=== PATIENT | female | born 1990 | race Caucasian/White ===

== ENCOUNTER 2022-02-01 15:40 | Emergency (ER) | payer MEDICAID ==
[~2022-02-01] VITALS: Ht 170.2 cm; Wt 105.0 kg
[~2022-02-01 15:40] MED LIST: CLIN300C17 PO
[2022-02-01] MEDS ORDERED: morphine 4 MG/ML inj SYRINge IV ONE ×4 (16:10→21:25)
[2022-02-01] MEDS ORDERED: ondansetron/PF 4mg/2ml inj IV ONE (16:10)
--- NOTE | 2022-02-01 16:19 | NUR ---
Patient declines ice packs.
[2022-02-01] MEDS ORDERED: LIDOcaine 1% W/epiNEPHrine 1:100,000 20ml vial SQ ONE ×4 (16:20→20:45)
[2022-02-01] MEDS ORDERED: ceFAZolin/D5W- 1GM premix 50 ML IV ONE (18:30)
--- NOTE | 2022-02-01 18:35 | NUR ---
Assumed care from Rn. Pat Alejandra at bedside.
[2022-02-01] MEDS ORDERED: oxyCODONE/APAP 10/325mg tablet PO ONE (19:35)
[2022-02-01] MEDS ORDERED: ketorolac trometh. 30mg/ml inj. IV ONE (21:25)
[2022-02-01] MEDS ORDERED: rabies immune globulin/PF 150 unit/ml inj IMVAC STA (21:47)
[2022-02-01] MEDS ORDERED: rabies vaccine (PCEC)/PF 2.5 unit kit IMVAC ONE (21:50)
[2022-02-01] MEDS ORDERED: OXYC-150 PO (22:30)
[2022-02-01] MEDS ORDERED: DOXY100T56 PO (22:30)
[2022-02-01 22:36] VITALS: BP 115/56
--- NOTE | 2022-02-01 23:16 | NUR ---
dr rodrigues to give a verbal for 5mg norco after pt stated the need for pain management until pharmacy opens
[2022-02-01] MEDS ORDERED: HYDROcodone/acetaminophen 5mg/325mg tablet PO ONE (23:20)
--- NOTE | 2022-02-01 23:47 | NUR ---
PT ARM WRAPPED, AND PUT IN SLING WITH [employer] [facility].
== END 2022-02-01 23:15 | disposition home or self-care (01) ==
LOC: ER 15:41
DX: S11.91XA Laceration without foreign body of unspecified part of neck, initial encounter (principal); S51.811A Laceration without foreign body of right forearm, initial encounter; S51.821A Laceration with foreign body of right forearm, initial encounter; S01.81XA Laceration without foreign body of other part of head, initial encounter; S50.11XA Contusion of right forearm, initial encounter; W54.0XXA Bitten by dog, initial encounter; Y93.89 Activity, other specified; Y92.89 Other specified places as the place of occurrence of the external cause; Y99.8 Other external cause status; Z20.3 Contact with and (suspected) exposure to rabies
CPT/HCPCS: 12007; 12013; 73090; 73110; 90376; 90471; 90675; 96365; 96372; 96375; 96376; 99285; J0690; J1885; J2270; J2405; J3490; 99284

== ENCOUNTER 2022-02-04 11:47 | Emergency (ER) | payer MEDICAID ==
[~2022-02-04] VITALS: Ht 170.2 cm; Wt 84.1 kg
[~2022-02-04 11:47] MED LIST changes: +DOXY100T56 PO; +OXYC-150 PO
[2022-02-04 12:03] VITALS: BP 116/86
[2022-02-04] MEDS ORDERED: rabies vaccine (PCEC)/PF 2.5 unit kit IMVAC ONE (13:20)
[2022-02-04] MEDS ORDERED: docusate sod 100mg capsule PO ONE (13:20)
== END 2022-02-04 13:57 | disposition home or self-care (01) ==
LOC: ER 11:47
DX: Z48.00 Encounter for change or removal of nonsurgical wound dressing (principal); S51.811D Laceration without foreign body of right forearm, subsequent encounter; S01.81XD Laceration without foreign body of other part of head, subsequent encounter; F17.200 Nicotine dependence, unspecified, uncomplicated; Z88.0 Allergy status to penicillin; Z88.1 Allergy status to other antibiotic agents; Z88.2 Allergy status to sulfonamides; Z79.2 Long term (current) use of antibiotics; Z79.899 Other long term (current) drug therapy; W54.0XXD Bitten by dog, subsequent encounter
CPT/HCPCS: 90471; 90675; 99281; 99283

== ENCOUNTER 2022-02-08 10:38 | Emergency (ER) | payer MEDICAID ==
[~2022-02-08] VITALS: Ht 170.2 cm; Wt 100.0 kg
[2022-02-08 10:45] VITALS: BP 148/84
[2022-02-08] MEDS ORDERED: rabies vaccine (PCEC)/PF 2.5 unit kit IMVAC ONE (11:15)
== END 2022-02-08 12:57 | disposition home or self-care (01) ==
LOC: ER 10:38
DX: S51.811D Laceration without foreign body of right forearm, subsequent encounter (principal); F12.90 Cannabis use, unspecified, uncomplicated; Z48.02 Encounter for removal of sutures; Z23 Encounter for immunization; Z88.0 Allergy status to penicillin; Z88.2 Allergy status to sulfonamides; Z88.1 Allergy status to other antibiotic agents; Z79.2 Long term (current) use of antibiotics; X58.XXXD Exposure to other specified factors, subsequent encounter
CPT/HCPCS: 90471; 90675; 99281

== ENCOUNTER 2022-02-11 12:26 | Emergency (ER) | payer MEDICAID ==
[~2022-02-11] VITALS: Ht 170.2 cm; Wt 100.0 kg
[2022-02-11 13:23] VITALS: BP 126/72
== END 2022-02-11 14:47 | disposition home or self-care (01) ==
LOC: ER 12:27
DX: S61.411D Laceration without foreign body of right hand, subsequent encounter (principal); W54.0XXD Bitten by dog, subsequent encounter; F12.10 Cannabis abuse, uncomplicated; Z88.0 Allergy status to penicillin; Z88.2 Allergy status to sulfonamides; Z88.1 Allergy status to other antibiotic agents; Z79.899 Other long term (current) drug therapy
CPT/HCPCS: 99281

== ENCOUNTER 2022-02-14 13:49 | Emergency (ER) | payer MEDICAID ==
[~2022-02-14] VITALS: Ht 170.2 cm; Wt 94.5 kg
[~2022-02-14 13:49] MED LIST changes: -DOXY100T56 PO
[2022-02-14 14:11] VITALS: BP 128/85
== END 2022-02-14 15:45 | disposition home or self-care (01) ==
LOC: ER 13:50
DX: S51.811D Laceration without foreign body of right forearm, subsequent encounter (principal); F12.90 Cannabis use, unspecified, uncomplicated; Z48.02 Encounter for removal of sutures; Z88.0 Allergy status to penicillin; Z88.2 Allergy status to sulfonamides; Z88.1 Allergy status to other antibiotic agents; Z79.2 Long term (current) use of antibiotics; X58.XXXD Exposure to other specified factors, subsequent encounter
CPT/HCPCS: 99281

== ENCOUNTER 2022-02-17 14:38 | Emergency (ER) | payer MEDICAID ==
[~2022-02-17] VITALS: Ht 170.2 cm; Wt 100.0 kg
[2022-02-17 14:54] VITALS: BP 115/70
--- NOTE | 2022-02-17 16:05 | NUR ---
not in lobby [id number]#[id number]
== END 2022-02-17 17:07 | disposition left against medical advice (07) ==
LOC: ER 14:39
DX: Z76.0 Encounter for issue of repeat prescription (principal); Z53.21 Procedure and treatment not carried out due to patient leaving prior to being seen by health care provider

== ENCOUNTER 2022-02-18 10:17 | Emergency (ER) | payer MEDICAID ==
[~2022-02-18] VITALS: Ht 170.2 cm; Wt 100.0 kg
[2022-02-18 10:44] VITALS: BP 126/72
[2022-02-18] MEDS ORDERED: rabies vaccine (PCEC)/PF 2.5 unit kit IMVAC ONE (11:55)
== END 2022-02-18 12:12 | disposition home or self-care (01) ==
LOC: ER 10:18
DX: S61.451D Open bite of right hand, subsequent encounter (principal); W54.0XXD Bitten by dog, subsequent encounter; Z20.3 Contact with and (suspected) exposure to rabies
CPT/HCPCS: 90471; 90675; 99281

== ENCOUNTER 2022-04-15 20:03 | Emergency (ER) | payer MEDICAID ==
[~2022-04-15] VITALS: Ht 170.2 cm; Wt 100.0 kg
[2022-04-15 20:08] VITALS: BP 144/93
[2022-04-15] MEDS ORDERED: CLIN300C70 PO (20:49)
[2022-04-15] MEDS ORDERED: IBUP-1984 PO (20:49)
[2022-04-15] MEDS ORDERED: HYDROcodone/acetaminophen 5mg/325mg tablet PO ONE (20:50)
[2022-04-15] MEDS ORDERED: ketorolac tromethamine 15mg/ml inj. IM ONE (20:50)
[2022-04-15] MEDS ORDERED: clindamycin 150mg capsule PO ONE ×2 (20:50)
[2022-04-15] MEDS ORDERED: ondansetron 4mg rapidly disintigrating tab PO ONE (20:50)
--- NOTE | 2022-04-15 21:14 | NUR ---
im given po meds x3 given
== END 2022-04-15 21:15 | disposition home or self-care (01) ==
LOC: ER 20:04
DX: K04.7 Periapical abscess without sinus (principal); F12.90 Cannabis use, unspecified, uncomplicated; Z88.0 Allergy status to penicillin; Z88.1 Allergy status to other antibiotic agents; Z88.2 Allergy status to sulfonamides
CPT/HCPCS: 96372; 99284; J1885

== ENCOUNTER 2022-06-25 21:22 | Emergency (ER) | payer MEDICAID ==
[~2022-06-25] VITALS: Ht 170.2 cm; Wt 104.0 kg
[2022-06-25 21:36] VITALS: BP 132/58
== END 2022-06-26 02:09 | disposition left against medical advice (07) ==
LOC: ER 21:22
DX: R10.9 Unspecified abdominal pain (principal); Z53.21 Procedure and treatment not carried out due to patient leaving prior to being seen by health care provider

== ENCOUNTER 2022-07-10 10:27 | Emergency (ER) | payer MEDICAID ==
[~2022-07-10] VITALS: Ht 170.2 cm; Wt 100.0 kg
[2022-07-10] MEDS ORDERED: dexamethasone 4mg/ml inj IV ONE (10:45)
[2022-07-10] MEDS ORDERED: famotidine/PF 10 mg/ml inj IV ONE (10:45)
[2022-07-10] MEDS ORDERED: diphenhydrAMINE 50 mg/ml inj IV ONE (10:45)
[2022-07-10] MEDS ORDERED: DIPH25CA83 PO (13:22)
[2022-07-10] MEDS ORDERED: PRED20TA PO (13:22)
[2022-07-10] MEDS ORDERED: FAMO40TA73 PO (13:22)
[2022-07-10] MEDS ORDERED: ondansetron/PF 4mg/2ml inj IV ONE (13:30)
[2022-07-10 13:34] VITALS: BP 127/71
== END 2022-07-10 13:36 | disposition home or self-care (01) ==
LOC: ER 10:27
DX: T78.40XA Allergy, unspecified, initial encounter (principal); R00.0 Tachycardia, unspecified; L50.9 Urticaria, unspecified; F17.200 Nicotine dependence, unspecified, uncomplicated; F19.90 Other psychoactive substance use, unspecified, uncomplicated; Z72.89 Other problems related to lifestyle; Z88.0 Allergy status to penicillin; Z88.2 Allergy status to sulfonamides; Z88.1 Allergy status to other antibiotic agents; Z79.2 Long term (current) use of antibiotics; Z79.899 Other long term (current) drug therapy; Y92.89 Other specified places as the place of occurrence of the external cause
CPT/HCPCS: 96374; 96375; 99285; J1100; J1200; J2405; J3490

== ENCOUNTER 2022-07-12 14:03 | Emergency (ER) | payer MEDICAID ==
[~2022-07-12] VITALS: Ht 170.2 cm; Wt 100.0 kg
[~2022-07-12 14:03] MED LIST changes: +DIPH25CA83 PO; +FAMO40TA73 PO; +PRED20TA PO
[2022-07-12 14:06] VITALS: BP 128/108
[2022-07-12] MEDS ORDERED: ondansetron 4mg rapidly disintigrating tab PO ONE (15:30)
--- NOTE | 2022-07-13 10:58 | NUR ---
Received order for consult. Called patient and left message.
--- NOTE | 2022-07-13 11:05 | NUR ---
Patient called me back about referral to [facility] clinic. I referred patient to Dr. Baron. Patient will call me if she has any questions.
== END 2022-07-12 15:53 | disposition home or self-care (01) ==
LOC: ER 14:04
DX: T78.40XA Allergy, unspecified, initial encounter (principal); Z88.0 Allergy status to penicillin; Z88.2 Allergy status to sulfonamides; Z88.1 Allergy status to other antibiotic agents; Z79.899 Other long term (current) drug therapy
CPT/HCPCS: 99283

== ENCOUNTER 2023-04-27 08:24 | Emergency (ER) | payer MEDICAID ==
[~2023-04-27] VITALS: Ht 165.1 cm; Wt 70.5 kg
[~2023-04-27 08:24] MED LIST changes: +CLIN150C2 PO; -PRED20TA PO
[2023-04-27 08:51] LABS: BASOPHILS # (AUTO) 0.1 X10'3 (0-0.2); BASOPHILS % (AUTO) 1.3 % (0-1); EOSINOPHILS # (AUTO) 0.5 X10'3 (0-0.9); HEMATOCRIT 36.7 % (35.0-45.0); HEMOGLOBIN 12.3 g/dl (12.0-16.0); LYMPHOCYTES % (AUTO) 28.7 % (21-51); MEAN CORPUSCULAR HEMOGLOBIN 31.4 PG (27.0-31.0); MEAN CORPUSCULAR HGB CONC 33.4 g/dL (33.0-36.5); MEAN CORPUSCULAR VOLUME 93.8 FL (78-98); MEAN PLATELET VOLUME 8.4 FL (7.4-10.4); MONOCYTES # (AUTO) 0.5 X10'3 (0-0.9); MONOCYTES % (AUTO) 6.8 % (2-12); NEUTROPHILS % (AUTO) 56.2 % (42-75); PLATELET COUNT 272 X10'3 (140-440); RED BLOOD COUNT 3.91 X10'6 (4.20-5.60)
[2023-04-27 08:53] LABS: URINE HCG NEGATIVE (NEG)
[2023-04-27 08:55] LABS: CLARITY,URINE CLOUDY (Clear); COLOR,URINE YELLOW (Yellow); GLUCOSE, URINE NEGATIVE (Neg); KETONES,URINE NEGATIVE (Neg); LEUKOCYTE ESTERASE ,URINE NEGATIVE (Neg); NITRITES, URINE NEGATIVE (Neg); OCCULT BLOOD,URINE NEGATIVE (Neg); PROTEIN,URINE NEGATIVE (Neg); UROBILINOGEN,URINE 0.2 E.U/dL (0.2-1.0)
[2023-04-27 08:59] LABS: UA COLLECTION TYPE CLN CATCH MIDSTREAM
[2023-04-27 09:06] LABS: ALANINE AMINOTRANSFERASE 44 U/L (12-78); ALBUMIN 3.7 G/DL (3.4-5.0); ALBUMIN/GLOBULIN RATIO 1.1 (1.1-1.5); ALKALINE PHOSPHATASE 64 IU/L (46-116); ANION GAP 9 (8-16); ASPARTATE AMINO TRANSFERASE 20 U/L (10-37); BILIRUBIN,TOTAL 0.2 MG/DL (0.1-1.0); BLOOD UREA NITROGEN 11 MG/DL (7-18); BUN/CREATININE RATIO 18.3 (10.0-20.0); CALCIUM 8.8 MG/DL (8.5-10.1); CHLORIDE 107 MMOL/L (99-107); GLUCOSE 137 MG/DL (70-104); POTASSIUM 3.9 MMOL/L (3.5-5.1); SODIUM 141 MMOL/L (135-145); TOTAL CARBON DIOXIDE 25.1 MMOL/L (24-32); eGFR > 90 ML/MIN
[2023-04-27] MEDS ORDERED: IBUP-1986 PO (09:19)
[2023-04-27 09:25] LABS: SQUAMOUS EPITHELIAL CELL,UR MANY /LPF (FEW)
[2023-04-27] MEDS ORDERED: ketorolac trometh inj. 60 MG/2 ML VIAL IM ONE (09:25)
[2023-04-27 09:26] LABS: BACTERIA,URINE FEW /HPF (Neg); TRANSITIONAL EPI CELLS,URINE FEW /HPF
[2023-04-27 09:27] LABS: MUCUS STRANDS FEW /LPF (Neg); RBC,URINE 0-2 /HPF (0-2); WBC,URINE 0-4 /HPF (0-4)
[2023-04-27 09:34] VITALS: BP 104/66; PULSE 83; RESP 18; O2SAT 94
== END 2023-04-27 09:36 | disposition home or self-care (01) ==
LOC: ER 08:24
DX: R07.89 Other chest pain (principal); F17.200 Nicotine dependence, unspecified, uncomplicated; Z72.89 Other problems related to lifestyle; Z88.0 Allergy status to penicillin; Z88.2 Allergy status to sulfonamides; Z91.030 Bee allergy status; Z79.899 Other long term (current) drug therapy
CPT/HCPCS: 36415; 71045; 80053; 81001; 81025; 83880; 84484; 85025; 93005; 96372; 99285; J1885

== ENCOUNTER 2023-04-27 20:46 | Emergency (ER) | payer MEDICAID ==
[~2023-04-27 20:46] MED LIST changes: +IBUP-1986 PO
[2023-04-27 21:04] VITALS: BP 137/81; PULSE 61; RESP 18; TEMP 97.8; O2SAT 98
== END 2023-04-27 23:24 | disposition home or self-care (01) ==
LOC: ER 20:47
DX: R60.9 Edema, unspecified (principal); M25.511 Pain in right shoulder; M25.512 Pain in left shoulder; Z72.89 Other problems related to lifestyle; Z79.899 Other long term (current) drug therapy; Z79.2 Long term (current) use of antibiotics; Z88.0 Allergy status to penicillin; Z88.2 Allergy status to sulfonamides; Z88.1 Allergy status to other antibiotic agents
CPT/HCPCS: 99281

== ENCOUNTER 2023-06-08 08:16 | Emergency (ER) | payer MEDICAID ==
[~2023-06-08] VITALS: Ht 170.2 cm; Wt 86.8 kg
[~2023-06-08 08:16] MED LIST changes: -CLIN150C2 PO
[2023-06-08 08:36] VITALS: BP 131/79; PULSE 81; RESP 18; TEMP 98.2; O2SAT 99
[2023-06-08] MEDS ORDERED: METR-159 PO (10:11)
[2023-06-08] MEDS ORDERED: NAPR-56 PO (10:11)
[2023-06-08] MEDS ORDERED: CYCL-1 PO (10:11)
== END 2023-06-08 10:53 | disposition home or self-care (01) ==
LOC: ER 08:17
DX: S86.811A Strain of other muscle(s) and tendon(s) at lower leg level, right leg, initial encounter (principal); M79.604 Pain in right leg; N76.0 Acute vaginitis; F17.200 Nicotine dependence, unspecified, uncomplicated; Z79.2 Long term (current) use of antibiotics; Z79.899 Other long term (current) drug therapy; Z88.0 Allergy status to penicillin; Z88.2 Allergy status to sulfonamides; Z88.1 Allergy status to other antibiotic agents; Z91.030 Bee allergy status; X50.1XXA Overexertion from prolonged static or awkward postures, initial encounter; Y93.89 Activity, other specified; Y92.89 Other specified places as the place of occurrence of the external cause; Y99.8 Other external cause status
CPT/HCPCS: 99283

== ENCOUNTER 2023-07-12 08:32 | Emergency (ER) | payer MEDICAID ==
[~2023-07-12] VITALS: Ht 170.2 cm; Wt 90.0 kg
[~2023-07-12 08:32] MED LIST changes: +CYCL-1 PO
[2023-07-12 08:56] VITALS: BP 125/78; PULSE 83; RESP 18; TEMP 98; O2SAT 98
== END 2023-07-12 12:15 | disposition home or self-care (01) ==
LOC: ER 08:33
DX: S93.402A Sprain of unspecified ligament of left ankle, initial encounter (principal); X58.XXXA Exposure to other specified factors, initial encounter; Y93.89 Activity, other specified; Y92.89 Other specified places as the place of occurrence of the external cause; Y99.8 Other external cause status
CPT/HCPCS: 29540; 73610; 99284; L1930